=== PATIENT | male | born 1985 | race Two or more races ===

== ENCOUNTER 2023-02-26 13:18 | Emergency (ER) | payer BC, OTHER ==
[~2023-02-26] VITALS: Ht 170.2 cm; Wt 84.0 kg
[2023-02-26 15:09] VITALS: BP 133/60; PULSE 83; RESP 15; TEMP 98.2; O2SAT 98
== END 2023-02-26 15:12 ==
LOC: EEVIPCON 13:18 → ER 13:18
DX: S86.011A Strain of right Achilles tendon, initial encounter (principal); X58.XXXA Exposure to other specified factors, initial encounter; Y93.66 Activity, soccer; Y92.89 Other specified places as the place of occurrence of the external cause; Y99.8 Other external cause status
CPT/HCPCS: 29515; 73610